=== PATIENT | male | born 2000 | race Caucasian/White ===

== ENCOUNTER 2020-06-14 07:01 | Emergency (ER) | payer OTHER ==
[~2020-06-14] VITALS: Ht 177.8 cm; Wt 81.7 kg
[~2020-06-14 07:01] MED LIST: CONCERTA36 MG; NAPROSYN500 MG PO; ROBAXIN 750 MG750 M1 PO; ZOLOFT
[2020-06-14] MEDS ORDERED: ALBUTEROL2.5 MG/0.1 INH (07:16)
[2020-06-14] MEDS ORDERED: ZPAK PO (07:58)
[2020-06-14] MEDS ORDERED: PREDNISONE 20 M20 M1 PO (07:58)
[2020-06-14 08:37] VITALS: BP 124/75
== END 2020-06-14 08:38 | disposition home or self-care (01) ==
LOC: M.ERS 07:01
DX: J45.909 Unspecified asthma, uncomplicated (principal)